=== PATIENT | female | born 1935 | race Caucasian/White ===

== ENCOUNTER → 2017-02-18 | Outpatient (CLI) | payer MEDICARE, OTHER ==
[~2017-02-18] MED LIST: ALBU8.5H3 INH; ASCO500C7 PO; ASPI-664 PO; ATEN50TA PO; ATOR40TA68 PO; BACI1CAP4 PO; CELE200C PO; HYD25 PO; LEVO5TAB10 PO; LOSA50TA6 PO; MONT10TA24 PO; NASONEX; OXYB5SYR2 PO; PANT40TA4 PO; SUCR1TAB56 PO; SYN1 PO
--- NOTE | 2017-02-18 15:20 | RADRPT ---
PROCEDURE: XR Right hip and pelvis. CLINICAL INDICATION: Right hip pain. Pelvic pain. Postop. TECHNIQUE: Two views. Frontal pelvis and lateral right hip. COMPARISON: 06/11/2016. FINDINGS: There is no fracture or dislocation. The soft tissues are normal. There is a right hip total arthroplasty which appears satisfactory. There are severe degenerative changes of the left hip with joint space narrowing, osteophytes, subar ticular sclerosis, subchondral cyst formation, and deformity. The appearance is worse than seen on 06/11/2016. Multiple surgical clips are present in the pelvis. The upper pelvis is not completely included on the image. IMPRESSION: 1. Satisfactory postoperative appearance of the right hip. 2. Severe degenerative changes of the left hip, worse than seen previously. RPTAT: QQ .John Conner MD, MD Date Time Electronically viewed and signed by .John Conner MD, on 02/18/2017 15:20 .R/
--- NOTE | 2017-02-18 15:33 | PN ---
Date/Time of Note Date/Time of Note DATE: 02/18/17 TIME: 15:27 Outpatient Progress Note Chief Complaint Status post right total hip replacement on 04/26/2016. HPI 81-year-old female presents today for postop right total hip replacement appointment for surgery performed on 04/26/2016 via anterior route. Patient has no complaints in regards to the right hip. Patient feels that she is back to her normal activity without any hesitation to the right hip. She presents today to discuss her left hip. Left hip also suffers from chronic osteoarthritis with [id number] deformity. Has limited activity to the left hip. He is a single-point cane for assisted ambulation due to instability of the left hip. No falls. Review of Systems Const: No Fever, no chills, no Fatigue, normal appetite, no diaphoresis. Resp: No SOB, no wheezing, no chest pain. CV: No chest pain, no palpitaions, no DILLON. Physical Exam Blood pressure 164/68, temperature is 98.1, pulse is 80, respiratory rate is 16 , height is 5 feet, weight is 160 pounds. General Appearance: well-developed, well-nourished, in no acute distress. Right hip: Patient seated comfortably in regards to the right hip at 90. Gait is normal and nonantalgic to the right hip. Left hip: Patient expresses discomfort with sitting to the left hip. About 80 with extra weight being applied to the right hip. He is a single-point cane for assisted ambulation. Imaging: X-ray of the right hip performed on 02/18/2017 showing all components appearing well aligned, attached and integrated to the bone. No signs of any lucency between metal and bone. On pelvic view, there continues to be bone on bone deformity to the left hip joint. Severe osteoarthritis of the left hip/ degenerative joint disease. Allergies Coded Allergies: Penicillins (Verified Allergy, Mild, 04/26/16) Assessment/Plan * Patient cleared in regards to the right hip status post surgery. Patient is in no need for ongoing follow-ups in regards to the right hip, unless she should experience any complication, and which we will be glad to see her. * Contact information for Rich provided today and when patient is ready to undergo left total hip arthroplasty, she will call in to schedule preoperative exam. * X-rays to the bilateral knee will be performed on preoperative exam as well. -Follow-up as needed. -Patient continues to be in possession of antibiotic card. -Patient made aware that dental prophylaxis will be necessary prior to any dental procedure for the remainder of their lifetime. Patient is aware that they must contact their dentist prior to any procedure to inform them of previous joint replacement with prosthesis implant so appropriate antibiotic may be prescribed to lower risk of joint infection status post surgery. Card will also serve as confirmation should patient be traveling and have to go through security such as at an airport. Follow-up as needed Dr. Bull present for exam and agrees with plan. Medications Home Meds Reported Medications [Nasonex] No Conflict Check 04/26/16 Montelukast Sodium* (Montelukast Sodium*) 10 Mg Tablet, 10 MG PO BID, #30 TAB 04/26/16 Oxybutynin Chloride* (Oxybutynin Chloride*) 5 Mg/5 Ml Syrup, 5 MG PO TID, ML 04/26/16 Pantoprazole* (Pantoprazole*) 40 Mg Tablet.dr, 40 MG PO DAILY, TAB 04/26/16 Albuterol Sulfate* (Proair HFA*) 8.5 Gm Hfa.aer.ad, 2 PUFF INH Q4, #1 INHALER 04/26/16 Bacillus Coagulans/Inulin (Probiotic Formula Capsule) 1 Each Capsule, 1 EACH PO DAILY, CAP 04/26/16 Sucralfate* (Carafate*) 1 Gm Tab, 1 GM PO BID, TAB 04/26/16 Ascorbic Acid* (Vitamin C*) 500 Mg Capsule.sa, 1000 MG PO DAILY, CAP 04/26/16 Levothyroxine Sodium* (Synthroid*) 100 Mcg Tablet, 100 MCG PO BEFORE BREAKFAST, #30 TAB 04/26/16 Aspirin* (Aspirin* EC) 81 Mg Tablet.dr, 81 MG PO DAILY, TAB 04/26/16 Atenolol* (Atenolol*) 50 Mg Tablet, 50 MG PO BID, #60 TAB 04/26/16 Atorvastatin* (Atorvastatin*) 40 Mg Tablet, 20 MG PO QHS, #30 TAB 04/26/16 Celecoxib* (Celebrex*) 200 Mg Capsule, 200 MG PO DAILY, CAP 04/26/16 Hydrochlorothiazide* (Hydrochlorothiazide*) 25 Mg Tab, 25 MG PO DAILY, #30 TAB 04/26/16 Levocetirizine Dihydrochloride (Xyzal) 5 Mg Tablet, 5 MG PO QPM, TAB 04/26/16 Losartan Potassium* (Losartan Potassium*) 50 Mg Tablet, 50 MG PO DAILY, TAB 04/26/16 ANITRA ORTIZ PA-C Feb 18, 2017 15:33
== END | disposition home or self-care (01) ==
LOC: HKI 14:16
DX: M25.552 Pain in left hip (principal); M16.12 Unilateral primary osteoarthritis, left hip; Z96.641 Presence of right artificial hip joint
CPT/HCPCS: 73502; G0463

== ENCOUNTER 2017-08-01 08:00 | Inpatient (IN) | payer MEDICARE, OTHER ==
[~2017-08-01] VITALS: Ht 152.4 cm; Wt 70.0 kg
[~2017-08-01 08:00] MED LIST changes: -HYD25 PO; +HYDR25TA6 PO; -LEVO5TAB10 PO; +LEVO5TAB28 PO
--- NOTE | 2017-10-13 12:09 | PREOPHP ---
DATE OF ADMISSION: 10/15/2017 CHIEF COMPLAINT: The patient preop for left total hip replacement. HISTORY OF PRESENT ILLNESS: The patient is an 82-year-old female with a history of longst anding arthritis of the left hip. Symptoms have gotten much worse over the last year. The patient has pain with ambulation and going up stairs. The patient currently under the care of ortho nish mosquera scheduled for left total hip replacement in July, but postponed. The patient had had ur inary tract infections. She has seen in infectious disease and has been treated. The patient's uri nary symptoms are improved. No recent illnesses. No chest pain, shortness of breath, fever, chills , or night sweats. The patient is scheduled for left total hip replacement with Dr. Thompson on 10/15. PAST MEDICAL HISTORY: Hypertension, hyperlipidemia, osteoarthritis, GERD, hypothyroid, osteoporosis , prediabetes, ovarian cancer, spinal stenosis, allergic rhinitis, diverticular disease. OPERATIONS: Cholecystectomy, hysterectomy, cataract extraction, tonsillectomy and right hip surgery . MEDICATIONS: 1. Losartan 50 mg daily. 2. Hydrochlorothiazide 25 mg daily. 3. Mometasone nasal spray. 4. ProAir HFA p.r.n. 5. Pantoprazole 40 mg daily. 6. Lipitor 20 mg daily. 7. Oxybutynin 5 mg b.i.d. 8. Aspirin 81 mg daily. 9. Carafate 1 gram b.i.d. 10. Synthroid 100 mcg daily. 11. Singulair 10 mg daily. 12. Celebrex 200 mg daily. 13. Atenolol 50 mg b.i.d. 14. Levocetirizine 5 mg daily. ALLERGIES: PENICILLIN. SOCIAL HISTORY: The patient never smoked, occasional alcohol. The patient is , a retired ba nker. FAMILY HISTORY: The patient's father at 60 from kidney cancer. Mother at 70 from a CVA. Brother at 60 from an VT. Sister with dementia. Daughter is alive and well. REVIEW OF SYSTEMS: GENERAL: The patient denies any fever, chills, night sweats, or other general complaints. HEENT: The patient denies any headaches, congestion, rhinorrhea, sore throat, or other HEENT compla ints. RESPIRATORY: The patient denies any cough, wheeze, shortness of breath, or other respiratory sympto ms. CARDIOVASCULAR: The patient denies any chest pains, palpitations, dizziness, or other cardiovascula r symptoms. GASTROINTESTINAL: The patient denies any abdominal pain, nausea, vomiting, bright red blood per rec charisma, melena, or other GI symptoms. GENITOURINARY: The patient denies any dysuria, frequency, or other symptoms. NEUROLOGIC: The patient denies any numbness, tingling, weakness, or other neurologic symptoms. PHYSICAL EXAMINATION: VITAL SIGNS: Temperature 97, pulse 68, blood pressure 146/64. GENERAL APPEARANCE: This is an overweight female in no acute distress. She appears nonto xic. HEENT: Normocephalic, atraumatic. Sclerae anicteric. Pupils equal, round, reactive to light. Ext raocular movements intact. Oropharynx is clear. NECK: Supple, no adenopathy, no thyromegaly, no bruits. LUNGS: Clear to auscultation. CARDIAC: Regular rate and rhythm. ABDOMEN: Bowel sounds are present. Abdomen is soft, nontender, nondistended. EXTREMITIES: Without cyanosis or clubbing. There is trace edema. NEUROLOGIC: The patient is awake and alert. Exam is grossly nonfocal. IMPRESSION: Osteoarthritis left hip, spinal stenosis, hypertension, hyperlipidemia, hyperglycemia. PLAN: Preop labs, EKG, chest x-ray recently done. The patient already is seeing cardiology for car diology clearance. If above are okay, the patient is okay for surgery. The patient to avoid aspiri n, NSAIDs or blood thinners for 1 week prior to surgery. Followup to be arranged. ADDENDUM: Data reviewed. The results will be faxed separately. The patient is medically stable to proceed with her proposed procedure. Dictated By: DAVID MCCRARY MD [place]/CIRILO Conf#: [id number] DID#: [id number] CC: HEYDI RAZO MD;*EndCC*
[2017-10-14] MEDS ORDERED: ROPIVACAINE 0.2% 60 ML, CLONIDINE 100 MCG, EPINEPHrine 0.3 MG, KETOROLAC 30 MG, SOD CHL... INJ SCH ×5 (15:30)
[2017-10-15] VITALS (27 sets, daily range): BP systolic 77–171; BP diastolic 43–76; PULSE 66–84; RESP 13–23; Ht 152.4 cm; Wt 70.0 kg
[2017-10-15] MEDS ORDERED: ACETAMINOPHEN 1000MG/100ML IV 100 ML IVPB ONE (06:00)
[2017-10-15] MEDS ORDERED: DEXAMETHASONE 4 MG/ML 1 ML INJ IV ONE (06:00)
[2017-10-15] MEDS ORDERED: ONDANSETRON 4 MG INJ IV ONE (06:00)
[2017-10-15] MEDS ORDERED: LACTATED RINGER'S 1,000 ML IV* SCH (06:00)
[2017-10-15] MEDS ORDERED: CELECOXIB 200 MG CAP PO ONE (06:00)
[2017-10-15] MEDS ORDERED: LANSOPRAZOLE 30 MG CAP PO ONE (06:00)
[2017-10-15] MEDS ORDERED: CLINDAMYCIN 600 MG/50 ML D5W IVPB IVPB ONE (07:00)
--- NOTE | 2017-10-15 07:17 | HPN ---
Date/Time of Note Date/Time of Note DATE: 10/15/17 TIME: 07:17 Interval H&P Admission Note Pt. seen H&P reviewed: No system changes ANITRA ORTIZ PA-C Oct 15, 2017 07:17
[2017-10-15] MEDS ORDERED: OXYB5TAB7 PO (07:38)
[2017-10-15] MEDS ORDERED: ATOR20TA38 PO (07:39)
[2017-10-15] MEDS ORDERED: ALBU8.5H3 INH (07:39)
[2017-10-15] MEDS ORDERED: VIT1CAPS10 PO (07:40)
[2017-10-15] MEDS ORDERED: CALC1TAB79 PO (07:41)
[2017-10-15] MEDS ORDERED: B&C/1TAB2 PO (07:41)
[2017-10-15] MEDS ORDERED: POLYMYXIN/BACITRACIN 1L IRRIG ONE (07:57)
[2017-10-15] MEDS ORDERED: BACITRACIN 50000 UNITS INJ ONE (07:57)
[2017-10-15] MEDS ORDERED: TRANEXAMIC ACID 1,000 MG in SOD CHLORIDE 0.9% 100 ML IVPB ONE (08:00)
[2017-10-15] MEDS ORDERED: TRANEXAMIC ACID 1,000 MG in SOD CHLORIDE 0.9% 90 ML IV ONE (08:00)
[2017-10-15] MEDS ORDERED: morphine SULFATE/PF (10 MG/10 ML) INJ ONE (08:48)
[2017-10-15] MEDS ORDERED: POLYMYXIN B 500000 UNIT INJ ONE (08:48)
[2017-10-15] MEDS ORDERED: BUPIVACAINE 0.5%/EPI (SDV) 30 ML INJ ONE (08:48)
[2017-10-15] MEDS ORDERED: KETOROLAC 30 MG INJ ONE (08:49)
[2017-10-15] MEDS ORDERED: ROPIVACAINE 0.2% 60 ML, CLONIDINE 100 MCG, EPINEPHrine 0.3 MG, KETOROLAC 30 MG, SOD CHL... INJ SCH ×5 (09:00)
[2017-10-15] MEDS ORDERED: PROPOFOL 20 ML ONE (09:08)
[2017-10-15] MEDS ORDERED: LIDOCAINE 2% (SDV) 5 ML INJ ONE (09:09)
[2017-10-15] MEDS ORDERED: SUCCINYLCHOLINE CHLORIDE 100 MG/5 ML SYG IV ONE (09:27)
[2017-10-15] MEDS ORDERED: ROCURONIUM 50 MG INJ ONE (09:27)
[2017-10-15] MEDS ORDERED: EPHEDrine SULFATE 50 MG/5 ML SYG IV PRN (10:30)
[2017-10-15] MEDS ORDERED: HYDROmorphONE (0.2 MG/ML) 10ML SYG IV PRN ×3 (10:30)
[2017-10-15] MEDS ORDERED: METOCLOPRAMIDE 10 MG INJ IV PRN (10:30)
[2017-10-15] MEDS ORDERED: OXYCODONE/ACETAMINOPHEN (5/325) TAB PO PRN ×2 (10:30)
[2017-10-15] MEDS ORDERED: MIDAZOLAM 1 MG/ML 2 ML INJ IV PRN (10:30)
[2017-10-15] MEDS ORDERED: FENTAnyl 50 MCG/ML VIAL IV PRN ×3 (10:30)
[2017-10-15] MEDS ORDERED: DIPHENHYDRAMINE 50 MG INJ IV PRN (10:30)
[2017-10-15] MEDS ORDERED: hydrALAzine 20 MG INJ IV PRN (10:30)
[2017-10-15] MEDS ORDERED: LABETALOL HCL 20MG INJ IV PRN (10:30)
[2017-10-15] MEDS ORDERED: ONDANSETRON 4 MG INJ IV PRN (10:30)
[2017-10-15] MEDS ORDERED: MEPERIDINE 25 MG INJ IV PRN (10:30)
[2017-10-15] MEDS ORDERED: METOCLOPRAMIDE 10 MG INJ ONE (10:31)
[2017-10-15] MEDS ORDERED: EPHEDrine SULFATE 50 MG/5 ML SYG ONE (10:31)
[2017-10-15] MEDS ORDERED: ONDANSETRON 4 MG INJ ONE (10:31)
[2017-10-15] MEDS ORDERED: NEOSTIGMINE 3 MG/3 ML SYRINGE ONE (10:56)
[2017-10-15] MEDS ORDERED: GLYCOPYRROLATE 0.4 MG INJ ONE (10:56)
--- NOTE | 2017-10-15 11:09 | SIPON ---
Date/Time of Note Date/Time of Note DATE: 10/15/17 TIME: 11:07 Operative Report Preoperative Diagnosis left hip DJD Postoperative Diagnosis same Operation/Procedure Performed left MAGGIE Surgeon see signature line audiology assistant esther Second assist: ESTHER ORTIZ PA-C Anesthesia: spinal Estimated blood loss: 150 - 200 ml's Transfusion Required none Specimen bone Grafts/Implants DePuy 12 stem, 48 head, 32 head Complications none RAJEEV BENITEZ Oct 15, 2017 11:09
--- NOTE | 2017-10-15 11:35 | PDOCDIS ---
Discharge Instructions DIAGNOSIS Discharge Diagnosis Status post left total hip arthroplasty via anterior route CONDITION Patient Condition: Good HOME CARE INSTRUCTIONS: Diet Instructions: Regular ACTIVITY: Activity Restrictions: Slowly Increase Activity Rest between Activity Avoid heavy lifting No Sexual Activity Do not Drive Do not operate Machinery Do not operate Power Tool Avoid Heavy Housework Keep Limb Elevated (May apply cold therapy over surgical region while resting.) Weight Bearing (Weight-bear as tolerated using front wheeled walker.) Bathing Restrictions: Shower (Mepilex surgical dressing to remain on until postoperative appointment. Keep this area clean and dry.) FOLLOW UP/APPOINTMENTS Follow-up Plan Follow-up at postoperative appointment given to you at your preoperative visit. ANITRA ORTIZ PA-C Oct 15, 2017 11:35
[2017-10-15] MEDS ORDERED: NA PHOSPHATE/BIPHOS 133 ML ENEMA PR PRN (12:00)
[2017-10-15] MEDS ORDERED: NACL 0.9% 3 ML SYG IV SCH (12:00)
[2017-10-15] MEDS ORDERED: KETOROLAC 15 MG INJ IV PRN (12:00)
[2017-10-15] MEDS ORDERED: NALOXONE (0.4 MG/ML) INJ IV PRN (12:00)
[2017-10-15] MEDS ORDERED: SENNA/DOCUSATE NA (8.6MG/50MG) TAB PO PRN (12:00)
[2017-10-15] MEDS ORDERED: BETHANECHOL 25 MG TAB PO PRN (12:00)
[2017-10-15] MEDS ORDERED: ASPIRIN (EC) 325 MG TAB PO ONE (12:00)
[2017-10-15] MEDS ORDERED: ZOLPIDEM 5 MG TAB PO PRN (12:00)
[2017-10-15] MEDS ORDERED: DIPHENHYDRAMINE 50 MG INJ IM PRN (12:00)
[2017-10-15] MEDS ORDERED: oxyCODONE 5 MG TAB PO PRN ×2 (12:00)
[2017-10-15] MEDS ORDERED: DOCUSATE SODIUM 100 MG CAP PO ONE (12:00)
[2017-10-15] MEDS ORDERED: BISACODYL 10 MG SUPP PR PRN (12:00)
[2017-10-15] MEDS ORDERED: MAGNESIUM HYDROXIDE 30ML CUP PO PRN (12:00)
[2017-10-15] MEDS: ONDANSETRON 4 MG INJ IV SCH ×2 (12:01→18:03)
[2017-10-15] MEDS: SOD CHLORIDE 0.9% 1,000 ML IV SCH (12:16)
--- NOTE | 2017-10-15 12:57 | RADRPT ---
PROCEDURE: Intraoperative imaging of the left hip with radiography. CLINICAL INDICATION: Left hip pain. Intraoperative. TECHNIQUE: 3 images of the left hip were obtained in the operating room with portable equipment. No radiologist was in attendance. COMPARISON: No prior study is available for comparison. FINDINGS: Images demonstrate bilateral total hip arthroplasties. IMPRESSION: 1. Satisfactory intraoperative imaging of the left hip. RPTAT: QQ .John Conner MD, MD Date Time Electronically viewed and signed by .John Conner MD, on 10/15/2017 12:57 .R/
--- NOTE | 2017-10-15 16:54 | OPR ---
Date/Time of Note Date/Time of Note DATE: 10/15/17 TIME: 16:49 Operative Report Procedure Date: Oct 15, 2017 Preoperative Diagnosis Left hip osteoarthritis Postoperative Diagnosis Same Operation/Procedure Performed Left total hip replacement Surgeon see signature line Plasma Specialist De Second Plasma Specialist: ANITRA ORTIZ PA-C Anesthesia Type: spinal Estimated Blood Loss: 200 - 250 ml's Transfusion none Specimen Bone Grafts/Implants depuy size 12 stem, 48 mm acetabulum , 32 mm head Tubes/Drains None Complications none Pt Condition Post Procedure: stable Disposition: PACU Indications Patient is an 82-year-old female with advanced osteoarthritis of her left hip Procedure Description Patient was placed supine on the operating room table. The left hip was prepped and draped in the usual manner. Left hip was approached anteriorly. The plane between the sartorius and tensor fascia kaylee was developed in a blunt fashion. Branches of the circumflex vessels were identified and cauterized with aqua Mantis. The femoral neck cut was made 1 cm proximal to the lesser trochanter. The head was removed. There was advanced osteoarthritis. There was evidence of adhesion of the synovium and capsule suggestive of inflammatory arthritis. The acetabular preparation was done with the Yung reamers. A 48 mm cup was well fitting. The final cup was placed in 40-45 of abduction and 20-25 of anteversion. One screw was used to enhance fixation. The IM canal of the femur was prepared for a size 12 stem. Trial stem and insert resulted in a stable hip with good range of motion and equal leg length. X-rays were obtained to confirm alignment. Once satisfactory alignment was confirmed, the trials were removed. Final implants were placed including a size 12 stem and 32 mm femoral head. The wound was then thoroughly irrigated. Final x-rays were satisfactory. The wound was injected with Marcaine and Toradol. Hemostasis was confirmed. Wound was closed in layers using #1 Vicryl for arthrotomy and fascia, 2-0 Vicryl for subcutaneous tissue, 3-0 Monocryl for the skin. Patient was transferred to the recovery room in stable condition RAJEEV BENITEZ Oct 15, 2017 16:54
[2017-10-15] MEDS: VANCOMYCIN 1 GM (PMX) 250 ML IVPB SCH (18:03)
--- NOTE | 2017-10-15 20:38 | PN ---
Date/Time of Note Date/Time of Note DATE: 10/15/17 TIME: 20:33 Assessment/Plan VTE Prophylaxis VTE Prophylaxis Intervention: ambulation, SCD's, other Lines/Catheters IV Catheter Type (from Nrsg): Peripheral IV Urinary Cath still in place: No Assessment/Plan Assessment/Plan A: severe OA-s/p lt THR HTN hyperlipidemia hypothyroid preDM P: hold antihypertensives tonight due to bp on low side DVT prophylaxis as per ortho - scds and asa cont current rx monitor labs Subjective 24 Hr Interval Summary Free Text/Dictation See dictated h&p for details. Pt with severe OA, s/p lt THR this am. Ambulated some without probs, pain well controlled. No cp, sob, dizziness. Tolerating clear liquid diet. Exam/Review of Systems Vital Signs Vitals Vital Signs Date Time Temp Pulse Resp B/P Pulse Ox O2 Delivery O2 Flow Rate FiO2 10/15/17 19:18 98.2 77 16 106/52 97 10/15/17 16:10 Room Air 10/15/17 16:07 2.0 Exam gen- nad, nontoxic lungs- CTA heart- RRR abd- +BS, soft, nontender ext- trace edema, distal neurovascular intact. Medications Medications Current Medications Sodium Chloride (NS) 1,000 ml @ 80 mls/hr [id number] IV Last administered on t 12:16; Admin Dose 80 MLS/HR; Start 10/15/17 at 11:35 Oxycodone HCl (Roxicodone) 20 mg Q3H PRN PO PAIN LEVEL 8-10; Start 10/15/17 at 12:00 Oxycodone HCl (Roxicodone) 10 mg Q3H PRN PO PAIN LEVEL 4-7; Start 10/15/17 at 12:00 Oxycodone HCl (Roxicodone) 5 mg Q3H PRN PO PAIN LEVEL 1-3; Start 10/15/17 at 12:00 Zolpidem Tartrate (Ambien) 5 mg HS PRN PO INSOMNIA; Start 10/15/17 at 12:00 Ondansetron HCl 4 mg 4 mg Q6H IV Last administered on 10/15/17 18:03; Admin Dose 4 MG; Start 10/15/17 at 12:00; Stop 10/16/17 at 06:01 Vancomycin HCl (Vancocin) 250 ml @ 125 mls/hr Q12H IVPB Last administered on 10/15/17t 18:03; Admin Dose 125 MLS/HR; Start 10/15/17 at 18:00; Stop at 07:59 Aspirin (Ecotrin) 325 mg DAILY PO ; Start 10/16/17 at 09:00 Celecoxib (Celebrex) 200 mg BID PO ; Start 10/16/17 at 09:00 Pantoprazole (Protonix Tab) 40 mg DAILY@06 PO ; Start 10/16/17 at 06:00 Docusate Sodium/ Ferrous Fumarate (Jassi-Sequels) 1 tab BID PO ; Start at 09:00 Docusate Sodium (Colace) 200 mg BID PO ; Start 10/16/17 at 09:00; Stop at 21:01 Simethicone (Mylicon) 80 mg TID PRN PO DISTENSION/GAS/BLOATING; Start at 12:00 Senna/Docusate Sodium (Senokot-S) 2 tab BID PRN PO CONSTIPATION; Start at 12:00 Magnesium Hydroxide (Milk Of Mag) 30 ml HS PRN PO CONSTIPATION; Start at 12:00 Bisacodyl (Dulcolax Supp) 10 mg DAILY PRN [place] CONSTIPATION; Start 10/15/17 at 12:00 Sodium Biphosphate/ Sodium Phosphate (Fleet Enema) 133 ml DAILY PRN [place] CONSTIPATION; Start 10/15/17 at 12:00 Diphenhydramine HCl (Benadryl) 25 mg Q4H PRN IM ITCHING OR RASH; Start at 12:00 Ketorolac Tromethamine (Toradol) 15 mg Q6 PRN IV PAIN; Start 10/15/17 at 12:00 ; Stop 10/19/17 at 11:59 Naloxone HCl (Narcan) 0.2 mg Q2M PRN IV DECREASED REPIRATORY RATE; Start at 12:00 DAVID MCCRARY MD Oct 15, 2017 20:38
[2017-10-16] MEDS: SOD CHLORIDE 0.9% 1,000 ML IV SCH ×2 (00:05→12:35)
[2017-10-16] MEDS: ONDANSETRON 4 MG INJ IV SCH ×2 (00:21→05:47)
[2017-10-16 01:50] VITALS: BP 94/51; RESP 16
[2017-10-16 05:00] VITALS: BP 107/51; PULSE 78; RESP 18
[2017-10-16] MEDS: VANCOMYCIN 1 GM (PMX) 250 ML IVPB SCH (05:47)
[2017-10-16] MEDS: PANTOPRAZOLE (EC) 40 MG TAB PO SCH (05:47)
[2017-10-16 06:15] LABS: BASOPHILS % 0.5 % (0.0-2.0); EOSINOPHILS # 0.1 10^3/ul (0.0-0.5); EOSINOPHILS % 1.3 % (0.0-7.0); HEMATOCRIT 26.8 % (37.0-47.0); HEMOGLOBIN 8.9 g/dl (12.0-16.0); LYMPHOCYTES # 1.9 10^3/ul (0.8-2.9); MEAN CORPUSCULAR HEMOGLOBIN 29.4 pg (29.0-33.0); MEAN CORPUSCULAR HGB CONC 33.2 g/dl (32.0-37.0); MEAN CORPUSCULAR VOLUME 88.4 fl (82.0-101.0); MONOCYTE # 1.2 10^3/ul (0.3-0.9); MONOCYTES % 14.1 % (0.0-11.0); NEUTROPHIL # 5.2 10^3/ul (1.6-7.5); NEUTROPHILS % 61.7 % (39.0-77.0); PLATELET COUNT 287 10^3/UL (140-415); RED BLOOD COUNT 3.03 10^6/ul (4.20-5.40); RED CELL DISTRIBUTION WIDTH 13.9 % (11.5-14.5); WHITE BLOOD COUNT 8.5 10^3/ul (4.8-10.8)
[2017-10-16 06:37] LABS: CALCIUM 8.2 mg/dl (8.4-10.2); CREATININE 0.79 mg/dl (0.44-1.00); POTASSIUM 3.1 mmol/L (3.5-5.1)
[2017-10-16 07:54] VITALS: BP 110/53; RESP 15
[2017-10-16] MEDS: CELECOXIB 200 MG CAP PO SCH ×2 (08:23→20:41)
[2017-10-16] MEDS: FERROUS FUMARATE (SR) TAB PO SCH ×2 (08:23→20:40)
[2017-10-16] MEDS: DOCUSATE SODIUM 100 MG CAP PO SCH ×2 (08:24→20:40)
[2017-10-16] MEDS: ASPIRIN (EC) 325 MG TAB PO SCH (08:24)
[2017-10-16] MEDS: oxyCODONE 5 MG TAB PO PRN ×2 (09:04→18:58)
--- NOTE | 2017-10-16 11:33 | PN ---
Date/Time of Note Date/Time of Note DATE: 10/16/17 TIME: 11:32 Assessment/Plan VTE Prophylaxis VTE Prophylaxis Intervention: ambulation, anti-embolic stocking, SCD's, other Lines/Catheters IV Catheter Type (from Nrsg): Saline Lock Urinary Cath still in place: No Subjective 24 Hr Interval Summary Free Text/Dictation Luz is doing very well after hip replacement. She is ambulatory with physical therapy. Pain is controlled with oral pain medication. There is no neurovascular deficit. Dressing is clean and dry. The patient wants to go to a snf facility in the next 1-2 days Exam/Review of Systems Vital Signs Vitals Vital Signs Date Time Temp Pulse Resp B/P Pulse Ox O2 Delivery O2 Flow Rate FiO2 10/16/17 09:28 Nasal Cannula 2.0 10/16/17 07:54 98.4 80 15 110/53 98 Intake and Output 10/15/17 10/15/17 10/16/17 15:00 23:00 07:00 Intake Total 750 ml 900 ml 880 ml Output Total 300 ml Balance 450 ml 900 ml 880 ml Results Result Diagram: 10/16/17 0511 10/16/17 0511 Results 24 hrs Laboratory Tests Test 10/16/17 05:11 White Blood Count 8.5 # Red Blood Count 3.03 L Hemoglobin 8.9 L Hematocrit 26.8 L Mean Corpuscular Volume 88.4 Mean Corpuscular Hemoglobin 29.4 Mean Corpuscular Hemoglobin Concent 33.2 Red Cell Distribution Width 13.9 Platelet Count 287 Mean Platelet Volume 10.0 Neutrophils % 61.7 Lymphocytes % 22.0 Monocytes % 14.1 H Eosinophils % 1.3 Basophils % 0.5 Nucleated Red Blood Cells % 0.0 Neutrophils # 5.2 Lymphocytes # 1.9 Monocytes # 1.2 H Eosinophils # 0.1 Basophils # 0.0 Nucleated Red Blood Cells # 0.0 Sodium Level 136 Potassium Level 3.1 L Chloride Level 100 Carbon Dioxide Level 27 Anion Gap 12 Blood Urea Nitrogen 21 H Creatinine 0.79 Glucose Level 102 Calcium Level 8.2 L Medications Medications Current Medications Sodium Chloride (NS) 1,000 ml @ 80 mls/hr [id number] IV Last administered on t 12:16; Admin Dose 80 MLS/HR; Start 10/15/17 at 11:35 Oxycodone HCl (Roxicodone) 20 mg Q3H PRN PO PAIN LEVEL 8-10; Start 10/15/17 at 12:00 Oxycodone HCl (Roxicodone) 10 mg Q3H PRN PO PAIN LEVEL 4-7 Last administered on 10/16/17 09:04; Admin Dose 10 MG; Start 10/15/17 at 12:00 Oxycodone HCl (Roxicodone) 5 mg Q3H PRN PO PAIN LEVEL 1-3; Start 10/15/17 at 12:00 Zolpidem Tartrate (Ambien) 5 mg HS PRN PO INSOMNIA; Start 10/15/17 at 12:00 Aspirin (Ecotrin) 325 mg DAILY PO Last administered on 10/16/17 08:24; Admin Dose 325 MG; Start 10/16/17 at 09:00 Celecoxib (Celebrex) 200 mg BID PO Last administered on 10/16/17 08:23; Admin Dose 200 MG; Start 10/16/17 at 09:00 Pantoprazole (Protonix Tab) 40 mg DAILY@06 PO Last administered on 10/16/17 05:47; Admin Dose 40 MG; Start 10/16/17 at 06:00 Docusate Sodium/ Ferrous Fumarate (Jassi-Sequels) 1 tab BID PO Last administered on 10/16/17 08:23; Admin Dose 1 TAB; Start 10/16/17 at 09:00 Docusate Sodium (Colace) 200 mg BID PO Last administered on 10/16/17 08:24; Admin Dose 200 MG; Start 10/16/17 at 09:00; Stop 10/18/17 at 21:01 Simethicone (Mylicon) 80 mg TID PRN PO DISTENSION/GAS/BLOATING; Start at 12:00 Senna/Docusate Sodium (Senokot-S) 2 tab BID PRN PO CONSTIPATION; Start at 12:00 Magnesium Hydroxide (Milk Of Mag) 30 ml HS PRN PO CONSTIPATION; Start at 12:00 Bisacodyl (Dulcolax Supp) 10 mg DAILY PRN [place] CONSTIPATION; Start 10/15/17 at 12:00 Sodium Biphosphate/ Sodium Phosphate (Fleet Enema) 133 ml DAILY PRN [place] CONSTIPATION; Start 10/15/17 at 12:00 Diphenhydramine HCl (Benadryl) 25 mg Q4H PRN IM ITCHING OR RASH; Start at 12:00 Ketorolac Tromethamine (Toradol) 15 mg Q6 PRN IV PAIN; Start 10/15/17 at 12:00 ; Stop 10/19/17 at 11:59 Naloxone HCl (Narcan) 0.2 mg Q2M PRN IV DECREASED REPIRATORY RATE; Start at 12:00 RAJEEV BENITEZ Oct 16, 2017 11:33
--- NOTE | 2017-10-16 14:52 | PN ---
Date/Time of Note Date/Time of Note DATE: 10/16/17 TIME: 14:48 Assessment/Plan VTE Prophylaxis VTE Prophylaxis Intervention: ambulation, SCD's, other Lines/Catheters IV Catheter Type (from Nrsg): Saline Lock Urinary Cath still in place: No Assessment/Plan Assessment/Plan A: severe OA-s/p lt THR hypokalemia HTN hypothyroid hyperlipidemia P: k replacement monitor labs, ck mg resume synthroid and reduced dose atenolol cont PT cont other rx Subjective 24 Hr Interval Summary Free Text/Dictation Pt s/p lt THR tolerating PT, pain reasonably controlled. No cp, sob, dizziness. Passing flatus no bm yet. Exam/Review of Systems Vital Signs Vitals Vital Signs Date Time Temp Pulse Resp B/P Pulse Ox O2 Delivery O2 Flow Rate FiO2 10/16/17 09:28 Nasal Cannula 2.0 10/16/17 07:54 98.4 80 15 110/53 98 Intake and Output 10/15/17 10/15/17 10/16/17 15:00 23:00 07:00 Intake Total 750 ml 900 ml 880 ml Output Total 300 ml Balance 450 ml 900 ml 880 ml Exam gen- nad, nontoxic lungs- cta heart- RRR abd- +BS, soft, nontender ext- tr edema, distal neurovascular intact Results Result Diagram: 10/16/17 0511 10/16/17 0511 Results 24 hrs Laboratory Tests Test 10/16/17 05:11 White Blood Count 8.5 # Red Blood Count 3.03 L Hemoglobin 8.9 L Hematocrit 26.8 L Mean Corpuscular Volume 88.4 Mean Corpuscular Hemoglobin 29.4 Mean Corpuscular Hemoglobin Concent 33.2 Red Cell Distribution Width 13.9 Platelet Count 287 Mean Platelet Volume 10.0 Neutrophils % 61.7 Lymphocytes % 22.0 Monocytes % 14.1 H Eosinophils % 1.3 Basophils % 0.5 Nucleated Red Blood Cells % 0.0 Neutrophils # 5.2 Lymphocytes # 1.9 Monocytes # 1.2 H Eosinophils # 0.1 Basophils # 0.0 Nucleated Red Blood Cells # 0.0 Sodium Level 136 Potassium Level 3.1 L Chloride Level 100 Carbon Dioxide Level 27 Anion Gap 12 Blood Urea Nitrogen 21 H Creatinine 0.79 Glucose Level 102 Calcium Level 8.2 L Medications Medications Current Medications Sodium Chloride (NS) 1,000 ml @ 80 mls/hr [id number] IV Last administered on 12:16; Admin Dose 80 MLS/HR; Start 10/15/17 at 11:35 Oxycodone HCl (Roxicodone) 20 mg Q3H PRN PO PAIN LEVEL 8-10; Start 10/15/17 at 12:00 Oxycodone HCl (Roxicodone) 10 mg Q3H PRN PO PAIN LEVEL 4-7 Last administered on 10/16/17 09:04; Admin Dose 10 MG; Start 10/15/17 at 12:00 Oxycodone HCl (Roxicodone) 5 mg Q3H PRN PO PAIN LEVEL 1-3; Start 10/15/17 at 12:00 Zolpidem Tartrate (Ambien) 5 mg HS PRN PO INSOMNIA; Start 10/15/17 at 12:00 Aspirin (Ecotrin) 325 mg DAILY PO Last administered on 10/16/17 08:24; Admin Dose 325 MG; Start 10/16/17 at 09:00 Celecoxib (Celebrex) 200 mg BID PO Last administered on 10/16/17 08:23; Admin Dose 200 MG; Start 10/16/17 at 09:00 Pantoprazole (Protonix Tab) 40 mg DAILY@06 PO Last administered on 10/16/17 05:47; Admin Dose 40 MG; Start 10/16/17 at 06:00 Docusate Sodium/ Ferrous Fumarate (Jassi-Sequels) 1 tab BID PO Last administered on 10/16/17 08:23; Admin Dose 1 TAB; Start 10/16/17 at 09:00 Docusate Sodium (Colace) 200 mg BID PO Last administered on 10/16/17 08:24; Admin Dose 200 MG; Start 10/16/17 at 09:00; Stop 10/18/17 at 21:01 Simethicone (Mylicon) 80 mg TID PRN PO DISTENSION/GAS/BLOATING; Start at 12:00 Senna/Docusate Sodium (Senokot-S) 2 tab BID PRN PO CONSTIPATION; Start at 12:00 Magnesium Hydroxide (Milk Of Mag) 30 ml HS PRN PO CONSTIPATION; Start at 12:00 Bisacodyl (Dulcolax Supp) 10 mg DAILY PRN [place] CONSTIPATION; Start 10/15/17 at 12:00 Sodium Biphosphate/ Sodium Phosphate (Fleet Enema) 133 ml DAILY PRN [place] CONSTIPATION; Start 10/15/17 at 12:00 Diphenhydramine HCl (Benadryl) 25 mg Q4H PRN IM ITCHING OR RASH; Start at 12:00 Ketorolac Tromethamine (Toradol) 15 mg Q6 PRN IV PAIN; Start 10/15/17 at 12:00 ; Stop 10/19/17 at 11:59 Naloxone HCl (Narcan) 0.2 mg Q2M PRN IV DECREASED REPIRATORY RATE; Start at 12:00 DAVID MCCRARY MD Oct 16, 2017 14:52
[2017-10-16 14:54] VITALS: BP 108/53; RESP 18
[2017-10-16] MEDS ORDERED: POTASSIUM CHLORIDE (SR) 20 MEQ TAB PO STA (14:59)
[2017-10-16 19:55] VITALS: BP 120/88; RESP 18
[2017-10-17] MEDS: SOD CHLORIDE 0.9% 1,000 ML IV SCH ×2 (01:05→13:35)
[2017-10-17 02:00] VITALS: BP 133/63; RESP 18
[2017-10-17] MEDS: PANTOPRAZOLE (EC) 40 MG TAB PO SCH (05:29)
[2017-10-17] MEDS: LEVOTHYROXINE 100 MCG TAB PO SCH (05:29)
[2017-10-17] MEDS: oxyCODONE 5 MG TAB PO PRN ×3 (05:40→20:24)
[2017-10-17 05:58] LABS: BASOPHIL # 0.1 10^3/ul (0.0-0.1); BASOPHILS % 0.8 % (0.0-2.0); EOSINOPHILS # 0.4 10^3/ul (0.0-0.5); EOSINOPHILS % 4.4 % (0.0-7.0); HEMATOCRIT 27.2 % (37.0-47.0); HEMOGLOBIN 8.9 g/dl (12.0-16.0); LYMPHOCYTES # 2.2 10^3/ul (0.8-2.9); LYMPHOCYTES % 27.7 % (15.0-51.0); MEAN CORPUSCULAR HEMOGLOBIN 28.9 pg (29.0-33.0); MEAN CORPUSCULAR HGB CONC 32.7 g/dl (32.0-37.0); MEAN CORPUSCULAR VOLUME 88.3 fl (82.0-101.0); MONOCYTE # 1.1 10^3/ul (0.3-0.9); MONOCYTES % 13.5 % (0.0-11.0); NEUTROPHIL # 4.2 10^3/ul (1.6-7.5); NEUTROPHILS % 53.2 % (39.0-77.0); PLATELET COUNT 284 10^3/UL (140-415); RED BLOOD COUNT 3.08 10^6/ul (4.20-5.40); RED CELL DISTRIBUTION WIDTH 14.2 % (11.5-14.5); WHITE BLOOD COUNT 7.9 10^3/ul (4.8-10.8)
[2017-10-17 06:36] LABS: CALCIUM 8.8 mg/dl (8.4-10.2); CREATININE 0.71 mg/dl (0.44-1.00); POTASSIUM 3.9 mmol/L (3.5-5.1)
[2017-10-17 08:16] VITALS: BP 132/61; RESP 18
--- NOTE | 2017-10-17 08:58 | PN ---
Date/Time of Note Date/Time of Note DATE: 10/17/17 TIME: 08:56 Assessment/Plan VTE Prophylaxis VTE Prophylaxis Intervention: ambulation, SCD's, other (Aspirin 325 mg) Lines/Catheters IV Catheter Type (from Nrsg): Saline Lock Burciaga in Place (from Nrsg): No Assessment/Plan Assessment/Plan -Pain Meds as needed -ASA for DVT Prophylaxis x 4 weeks outpatient discussed. -Continue monitoring as outpatient on discharge -Follow-up at scheduled postop outpatient appointment or sooner if there is any issue. -Hip precautions discussed -Patient Stable -Discharge to SNF Subjective 24 Hr Interval Summary 82-year-old female postop day 2 status post left total hip arthroplasty via anterior route. No acute events overnight. Patient has complaints of some aches to the left hip region. Up and walking with physical therapy. Denies any chest pain/tightness, shortness of breath or calf pain. Continues to progress. [facility] Pain Control: mild Exam/Review of Systems Vital Signs Vitals Vital Signs Date Time Temp Pulse Resp B/P Pulse Ox O2 Delivery O2 Flow Rate FiO2 10/17/17 08:16 98.3 78 18 132/61 97 10/16/17 09:28 Nasal Cannula 2.0 Intake and Output 10/16/17 10/16/17 10/17/17 15:00 23:00 07:00 Intake Total 250 ml 600 ml 600 ml Output Total 700 ml Balance 250 ml -100 ml 600 ml Exam Free Text/Dictation -Mild bleeding to the distal portion of Mepilex dressing. Dressing intact. No signs of infection. -Thigh soft -5/5 Quadriceps, Tibialis Anterior, EHL Gastrocnemius/Soleus and Peroneals -Normal Sensation -Palpable DP/PT, Capillary Refill <2 secs -No Distal Edema -Negative Negin Sign/No calf pain -Toes Freely Movable Constitutional: alert, oriented, well developed Results Result Diagram: 10/17/17 0459 10/17/17 0459 ANITRA ORTIZ PA-C Oct 17, 2017 08:58
[2017-10-17] MEDS ORDERED: ATENOLOL 25 MG TAB PO SCH (09:00)
[2017-10-17] MEDS: FERROUS FUMARATE (SR) TAB PO SCH ×2 (09:18→20:25)
[2017-10-17] MEDS: DOCUSATE SODIUM 100 MG CAP PO SCH ×2 (09:18→20:24)
[2017-10-17] MEDS: CELECOXIB 200 MG CAP PO SCH ×2 (09:18→20:25)
[2017-10-17] MEDS: ASPIRIN (EC) 325 MG TAB PO SCH (09:18)
[2017-10-17 15:07] VITALS: BP 133/63; RESP 18
--- NOTE | 2017-10-17 16:14 | PN ---
Date/Time of Note Date/Time of Note DATE: 10/17/17 TIME: 16:07 Assessment/Plan VTE Prophylaxis VTE Prophylaxis Intervention: ambulation, SCD's, other Lines/Catheters IV Catheter Type (from Nrsg): Saline Lock Urinary Cath still in place: No Assessment/Plan Assessment/Plan A: severe OA- s/p lt THR hypokalemia hypomagnesemia HTN hypothyroid hyperlipidemia P: inc atenolol to bid mag replacement resume lipitor await snf placement Subjective 24 Hr Interval Summary Free Text/Dictation Pt with severe OA s/p lt THR. Pain reasonably controlled, awaiting placement at [facility]. Hypokalemia corrected. No cp, sob, f/c, ns. Exam/Review of Systems Vital Signs Vitals Vital Signs Date Time Temp Pulse Resp B/P Pulse Ox O2 Delivery O2 Flow Rate FiO2 10/17/17 15:07 98.0 71 18 133/63 97 10/16/17 09:28 Nasal Cannula 2.0 Intake and Output 10/16/17 10/16/17 10/17/17 15:00 23:00 07:00 Intake Total 250 ml 600 ml 600 ml Output Total 700 ml Balance 250 ml -100 ml 600 ml Exam gen- NAD, nontoxic lungs- CTA heart- RRR abd- +BS, soft, nontender ext- tr edema, mild sanguinous drainage in dressing at hip Results Result Diagram: 10/17/17 0459 10/17/17 0459 Results 24 hrs Laboratory Tests Test 10/17/17 04:59 White Blood Count 7.9 Red Blood Count 3.08 L Hemoglobin 8.9 L Hematocrit 27.2 L Mean Corpuscular Volume 88.3 Mean Corpuscular Hemoglobin 28.9 L Mean Corpuscular Hemoglobin Concent 32.7 Red Cell Distribution Width 14.2 Platelet Count 284 Mean Platelet Volume 10.0 Neutrophils % 53.2 Lymphocytes % 27.7 Monocytes % 13.5 H Eosinophils % 4.4 Basophils % 0.8 Nucleated Red Blood Cells % 0.0 Neutrophils # 4.2 Lymphocytes # 2.2 Monocytes # 1.1 H Eosinophils # 0.4 Basophils # 0.1 Nucleated Red Blood Cells # 0.0 Sodium Level 138 Potassium Level 3.9 Chloride Level 104 Carbon Dioxide Level 28 Anion Gap 10 Blood Urea Nitrogen 17 Creatinine 0.71 Glucose Level 100 Calcium Level 8.8 Magnesium Level 1.6 L Medications Medications Current Medications Sodium Chloride (NS) 1,000 ml @ 80 mls/hr [id number] IV Last administered on 12:16; Admin Dose 80 MLS/HR; Start 10/15/17 at 11:35 Oxycodone HCl (Roxicodone) 20 mg Q3H PRN PO PAIN LEVEL 8-10; Start 10/15/17 at 12:00 Oxycodone HCl (Roxicodone) 10 mg Q3H PRN PO PAIN LEVEL 4-7 Last administered on 10/17/17 05:40; Admin Dose 10 MG; Start 10/15/17 at 12:00 Oxycodone HCl (Roxicodone) 5 mg Q3H PRN PO PAIN LEVEL 1-3; Start 10/15/17 at 12:00 Zolpidem Tartrate (Ambien) 5 mg HS PRN PO INSOMNIA; Start 10/15/17 at 12:00 Aspirin (Ecotrin) 325 mg DAILY PO Last administered on 10/17/17 09:18; Admin Dose 325 MG; Start 10/16/17 at 09:00 Celecoxib (Celebrex) 200 mg BID PO Last administered on 10/17/17 09:18; Admin Dose 200 MG; Start 10/16/17 at 09:00 Pantoprazole (Protonix Tab) 40 mg DAILY@06 PO Last administered on 10/17/17 05:29; Admin Dose 40 MG; Start 10/16/17 at 06:00 Docusate Sodium/ Ferrous Fumarate (Jassi-Sequels) 1 tab BID PO Last administered on 10/17/17 09:18; Admin Dose 1 TAB; Start 10/16/17 at 09:00 Docusate Sodium (Colace) 200 mg BID PO Last administered on 10/17/17 09:18; Admin Dose 200 MG; Start 10/16/17 at 09:00; Stop 10/18/17 at 21:01 Simethicone (Mylicon) 80 mg TID PRN PO DISTENSION/GAS/BLOATING; Start at 12:00 Senna/Docusate Sodium (Senokot-S) 2 tab BID PRN PO CONSTIPATION Last administered on 10/17/17 05:40; Admin Dose 2 TAB; Start 11/22/17 at 12:00 Magnesium Hydroxide (Milk Of Mag) 30 ml HS PRN PO CONSTIPATION; Start at 12:00 Bisacodyl (Dulcolax Supp) 10 mg DAILY PRN [place] CONSTIPATION; Start 10/15/17 at 12:00 Sodium Biphosphate/ Sodium Phosphate (Fleet Enema) 133 ml DAILY PRN [place] CONSTIPATION; Start 10/15/17 at 12:00 Diphenhydramine HCl (Benadryl) 25 mg Q4H PRN IM ITCHING OR RASH; Start at 12:00 Ketorolac Tromethamine (Toradol) 15 mg Q6 PRN IV PAIN; Start 10/15/17 at 12:00 ; Stop 10/19/17 at 11:59 Naloxone HCl (Narcan) 0.2 mg Q2M PRN IV DECREASED REPIRATORY RATE; Start at 12:00 Atenolol (Tenormin) 25 mg DAILY PO Last administered on 10/17/17 09:18; Admin Dose 25 MG; Start 10/17/17 at 09:00 Levothyroxine Sodium (Synthroid) 100 mcg DAILY@06 PO Last administered on 10/17 05:29; Admin Dose 100 MCG; Start 10/17/17 at 06:00 DAVID MCCRARY MD Oct 17, 2017 16:14
[2017-10-17] MEDS ORDERED: MAGNESIUM SULFATE 2 GM/50 ML 50 ML IVPB ONE (17:00)
[2017-10-17 19:53] VITALS: BP 137/65; RESP 20
[2017-10-17] MEDS: ATORVASTATIN 20 MG TAB PO SCH (20:24)
[2017-10-17] MEDS: ATENOLOL 25 MG TAB PO SCH (20:25)
[2017-10-18] MEDS: SOD CHLORIDE 0.9% 1,000 ML IV SCH ×2 (02:05→14:35)
[2017-10-18 03:05] VITALS: BP 132/67; RESP 18
[2017-10-18] MEDS: LEVOTHYROXINE 100 MCG TAB PO SCH (05:54)
[2017-10-18] MEDS: PANTOPRAZOLE (EC) 40 MG TAB PO SCH (05:54)
[2017-10-18 08:21] VITALS: BP 163/75; RESP 20
[2017-10-18] MEDS: FERROUS FUMARATE (SR) TAB PO SCH ×2 (08:33→20:41)
[2017-10-18] MEDS: ASPIRIN (EC) 325 MG TAB PO SCH (08:33)
[2017-10-18] MEDS: DOCUSATE SODIUM 100 MG CAP PO SCH ×2 (08:33→20:41)
[2017-10-18] MEDS: CELECOXIB 200 MG CAP PO SCH ×2 (08:33→20:41)
[2017-10-18] MEDS: oxyCODONE 5 MG TAB PO PRN (08:34)
[2017-10-18] MEDS: ATENOLOL 25 MG TAB PO SCH (08:34)
[2017-10-18 09:15] LABS: BASOPHIL # 0.1 10^3/ul (0.0-0.1); BASOPHILS % 0.7 % (0.0-2.0); EOSINOPHILS # 0.4 10^3/ul (0.0-0.5); HEMATOCRIT 27.5 % (37.0-47.0); HEMOGLOBIN 8.9 g/dl (12.0-16.0); LYMPHOCYTES # 1.6 10^3/ul (0.8-2.9); LYMPHOCYTES % 20.7 % (15.0-51.0); MEAN CORPUSCULAR HEMOGLOBIN 29.1 pg (29.0-33.0); MEAN CORPUSCULAR HGB CONC 32.4 g/dl (32.0-37.0); MEAN CORPUSCULAR VOLUME 89.9 fl (82.0-101.0); MEAN PLATELET VOLUME 9.9 fl (7.4-10.4); MONOCYTE # 0.8 10^3/ul (0.3-0.9); MONOCYTES % 11.1 % (0.0-11.0); NEUTROPHIL # 4.7 10^3/ul (1.6-7.5); NEUTROPHILS % 62.1 % (39.0-77.0); PLATELET COUNT 287 10^3/UL (140-415); RED BLOOD COUNT 3.06 10^6/ul (4.20-5.40); RED CELL DISTRIBUTION WIDTH 14.1 % (11.5-14.5); WHITE BLOOD COUNT 7.6 10^3/ul (4.8-10.8)
[2017-10-18 09:41] LABS: CALCIUM 8.8 mg/dl (8.4-10.2); CREATININE 0.67 mg/dl (0.44-1.00); POTASSIUM 3.6 mmol/L (3.5-5.1)
[2017-10-18 11:14] VITALS: BP 148/70; PULSE 78
--- NOTE | 2017-10-18 15:02 | PN ---
Date/Time of Note Date/Time of Note DATE: 10/18/17 TIME: 14:57 Assessment/Plan VTE Prophylaxis VTE Prophylaxis Intervention: ambulation, SCD's, other Lines/Catheters IV Catheter Type (from Nrsg): Saline Lock Urinary Cath still in place: No Assessment/Plan Assessment/Plan A: nausea dizziness HTN severe OA- s/p lt THR hypothyroid hypomagnesemia hypokalemia P: inc atenolol to 50mg bid resume losartan cont other rx check chem, amylase, lipase, mg in am carafate Subjective 24 Hr Interval Summary Free Text/Dictation Pt with some nausea and dizziness this am. Chicken a bit flushed. BP elevated. Sx lasted few minutes. No cp, sob, abd pain. Had bm this am. Pain control reasonable. Exam/Review of Systems Vital Signs Vitals Vital Signs Date Time Temp Pulse Resp B/P Pulse Ox O2 Delivery O2 Flow Rate FiO2 10/18/17 11:14 78 148/70 10/18/17 08:21 98.3 20 95 10/16/17 09:28 Nasal Cannula 2.0 Intake and Output 10/17/17 10/17/17 10/18/17 15:00 23:00 07:00 Intake Total 1050 ml 480 ml Balance 1050 ml 480 ml Exam gen- nad, nontoxic lungs- CTA heart- RRR. abd- +BS, soft, nontender ext- tr edema Results Result Diagram: 10/18/1782710/18/1728 Results 24 hrs Laboratory Tests Test 10/18/17 08:28 White Blood Count 7.6 Red Blood Count 3.06 L Hemoglobin 8.9 L Hematocrit 27.5 L Mean Corpuscular Volume 89.9 Mean Corpuscular Hemoglobin 29.1 Mean Corpuscular Hemoglobin Concent 32.4 Red Cell Distribution Width 14.1 Platelet Count 287 Mean Platelet Volume 9.9 Neutrophils % 62.1 Lymphocytes % 20.7 Monocytes % 11.1 H Eosinophils % 5.0 Basophils % 0.7 Nucleated Red Blood Cells % 0.0 Neutrophils # 4.7 Lymphocytes # 1.6 Monocytes # 0.8 Eosinophils # 0.4 Basophils # 0.1 Nucleated Red Blood Cells # 0.0 Sodium Level 137 Potassium Level 3.6 Chloride Level 101 Carbon Dioxide Level 32 H Anion Gap 8 Blood Urea Nitrogen 15 Creatinine 0.67 Glucose Level 106 Calcium Level 8.8 Medications Medications Current Medications Sodium Chloride (NS) 1,000 ml @ 80 mls/hr [id number] IV Last administered on 12:16; Admin Dose 80 MLS/HR; Start 10/15/17 at 11:35 Oxycodone HCl (Roxicodone) 20 mg Q3H PRN PO PAIN LEVEL 8-10; Start 10/15/17 at 12:00 Oxycodone HCl (Roxicodone) 10 mg Q3H PRN PO PAIN LEVEL 4-7 Last administered on 10/18/17 08:34; Admin Dose 10 MG; Start 10/15/17 at 12:00 Oxycodone HCl (Roxicodone) 5 mg Q3H PRN PO PAIN LEVEL 1-3; Start 10/15/17 at 12:00 Zolpidem Tartrate (Ambien) 5 mg HS PRN PO INSOMNIA; Start 10/15/17 at 12:00 Aspirin (Ecotrin) 325 mg DAILY PO Last administered on 10/18/17 08:33; Admin Dose 325 MG; Start 10/16/17 at 09:00 Celecoxib (Celebrex) 200 mg BID PO Last administered on 10/18/17 08:33; Admin Dose 200 MG; Start 10/16/17 at 09:00 Pantoprazole (Protonix Tab) 40 mg DAILY@06 PO Last administered on 10/18/17 05:54; Admin Dose 40 MG; Start 10/16/17 at 06:00 Docusate Sodium/ Ferrous Fumarate (Jassi-Sequels) 1 tab BID PO Last administered on 10/18/17 08:33; Admin Dose 1 TAB; Start 10/16/17 at 09:00 Docusate Sodium (Colace) 200 mg BID PO Last administered on 10/18/17 08:33; Admin Dose 200 MG; Start 10/16/17 at 09:00; Stop 10/18/17 at 21:01 Simethicone (Mylicon) 80 mg TID PRN PO DISTENSION/GAS/BLOATING; Start at 12:00 Senna/Docusate Sodium (Senokot-S) 2 tab BID PRN PO CONSTIPATION Last administered on 10/17/17 05:40; Admin Dose 2 TAB; Start 11/22/17 at 12:00 Magnesium Hydroxide (Milk Of Mag) 30 ml HS PRN PO CONSTIPATION; Start at 12:00 Bisacodyl (Dulcolax Supp) 10 mg DAILY PRN [place] CONSTIPATION; Start 10/15/17 at 12:00 Sodium Biphosphate/ Sodium Phosphate (Fleet Enema) 133 ml DAILY PRN [place] CONSTIPATION; Start 10/15/17 at 12:00 Diphenhydramine HCl (Benadryl) 25 mg Q4H PRN IM ITCHING OR RASH; Start at 12:00 Ketorolac Tromethamine (Toradol) 15 mg Q6 PRN IV PAIN; Start 10/15/17 at 12:00 ; Stop 10/19/17 at 11:59 Naloxone HCl (Narcan) 0.2 mg Q2M PRN IV DECREASED REPIRATORY RATE; Start at 12:00 Levothyroxine Sodium (Synthroid) 100 mcg DAILY@06 PO Last administered on 10/18 05:54; Admin Dose 100 MCG; Start 10/17/17 at 06:00 Atenolol (Tenormin) 25 mg BID PO Last administered on 10/18/17 08:34; Admin Dose 25 MG; Start 10/17/17 at 21:00 Atorvastatin Calcium (Lipitor) 20 mg HS PO Last administered on 10/17/17 20: 24; Admin Dose 20 MG; Start 10/17/17 at 21:00 DAVID MCCRARY MD Oct 18, 2017 15:02
[2017-10-18 15:41] VITALS: BP 157/74; RESP 20
[2017-10-18] MEDS: LOSARTAN 50 MG TAB PO SCH (15:54)
[2017-10-18] MEDS: SUCRALFATE 1 GM TAB PO SCH ×2 (16:43→20:41)
[2017-10-18 19:30] VITALS: BP 156/70; RESP 18
[2017-10-18 20:05] VITALS: BP 129/63; PULSE 74
[2017-10-18] MEDS: ATORVASTATIN 20 MG TAB PO SCH (20:42)
[2017-10-18] MEDS: ATENOLOL 50 MG TAB PO SCH (20:42)
[2017-10-19 02:00] VITALS: BP 128/60; RESP 18
[2017-10-19] MEDS: SOD CHLORIDE 0.9% 1,000 ML IV SCH ×2 (03:05→15:35)
[2017-10-19] MEDS: PANTOPRAZOLE (EC) 40 MG TAB PO SCH (07:13)
[2017-10-19] MEDS: LEVOTHYROXINE 100 MCG TAB PO SCH (07:13)
[2017-10-19 07:47] VITALS: BP 145/65; RESP 18
[2017-10-19 08:59] LABS: BASOPHIL # 0.1 10^3/ul (0.0-0.1); BASOPHILS % 0.7 % (0.0-2.0); EOSINOPHILS # 0.4 10^3/ul (0.0-0.5); EOSINOPHILS % 4.5 % (0.0-7.0); HEMATOCRIT 27.6 % (37.0-47.0); HEMOGLOBIN 9.1 g/dl (12.0-16.0); LYMPHOCYTES # 1.7 10^3/ul (0.8-2.9); LYMPHOCYTES % 21.2 % (15.0-51.0); MEAN CORPUSCULAR HEMOGLOBIN 29.4 pg (29.0-33.0); MEAN CORPUSCULAR VOLUME 89.3 fl (82.0-101.0); MEAN PLATELET VOLUME 9.5 fl (7.4-10.4); MONOCYTE # 0.9 10^3/ul (0.3-0.9); MONOCYTES % 11.2 % (0.0-11.0); NEUTROPHILS % 61.9 % (39.0-77.0); PLATELET COUNT 332 10^3/UL (140-415); RED BLOOD COUNT 3.09 10^6/ul (4.20-5.40)
[2017-10-19] MEDS: oxyCODONE 5 MG TAB PO PRN ×2 (09:12→20:57)
[2017-10-19] MEDS: LOSARTAN 50 MG TAB PO SCH (09:13)
[2017-10-19] MEDS: CELECOXIB 200 MG CAP PO SCH ×2 (09:13→20:50)
[2017-10-19] MEDS: ASPIRIN (EC) 325 MG TAB PO SCH (09:13)
[2017-10-19] MEDS: FERROUS FUMARATE (SR) TAB PO SCH ×2 (09:13→20:50)
[2017-10-19] MEDS: SUCRALFATE 1 GM TAB PO SCH ×4 (09:13→20:50)
[2017-10-19] MEDS: ATENOLOL 50 MG TAB PO SCH ×2 (09:14→20:52)
[2017-10-19 09:16] LABS: ALBUMIN 2.7 g/dl (3.3-4.9); ALBUMIN/GLOBULIN RATIO 1.08; BILIRUBIN,INDIRECT 0.4 mg/dl (0-1.1); BILIRUBIN,TOTAL 0.4 mg/dl (0.2-1.3); CALCIUM 8.6 mg/dl (8.4-10.2); CREATININE 0.62 mg/dl (0.44-1.00); MAGNESIUM 1.7 mg/dl (1.7-2.5); POTASSIUM 4.5 mmol/L (3.5-5.1); TOTAL PROTEIN 5.2 g/dl (6.1-8.1)
--- NOTE | 2017-10-19 13:57 | PN ---
Date/Time of Note Date/Time of Note DATE: 10/19/17 TIME: 13:54 Assessment/Plan VTE Prophylaxis VTE Prophylaxis Intervention: ambulation, SCD's, other Lines/Catheters IV Catheter Type (from Nrsg): Saline Lock Urinary Cath still in place: No Assessment/Plan Assessment/Plan A: nausea improved s/p lt THR HTN hyperlipidemia hypothyroid P: anticipate snf tomorrow, bed supposed to be available then cont current rx Subjective 24 Hr Interval Summary Free Text/Dictation Pt with some nausea, improving, no vomiting. No abd pain, cp, sob, dizziness. Pain controlled. Exam/Review of Systems Vital Signs Vitals Vital Signs Date Time Temp Pulse Resp B/P Pulse Ox O2 Delivery O2 Flow Rate FiO2 10/19/17 07:47 97.3 76 18 145/65 97 10/16/17 09:28 Nasal Cannula 2.0 Intake and Output 10/18/17 10/18/17 10/19/17 15:00 23:00 07:00 Intake Total 1200 ml 960 ml Output Total 900 ml 1000 ml Balance 300 ml -40 ml Exam gen- nad, nontoxic lungs- CTA heart- RRR abd- +BS, soft, nontender ext- tr edema Results Result Diagram: 10/19/17 0842 10/19/17 0842 Results 24 hrs Laboratory Tests Test 10/19/17 08:42 White Blood Count 8.0 Red Blood Count 3.09 L Hemoglobin 9.1 L Hematocrit 27.6 L Mean Corpuscular Volume 89.3 Mean Corpuscular Hemoglobin 29.4 Mean Corpuscular Hemoglobin Concent 33.0 Red Cell Distribution Width 14.0 Platelet Count 332 Mean Platelet Volume 9.5 Neutrophils % 61.9 Lymphocytes % 21.2 Monocytes % 11.2 H Eosinophils % 4.5 Basophils % 0.7 Nucleated Red Blood Cells % 0.0 Neutrophils # 5.0 Lymphocytes # 1.7 Monocytes # 0.9 Eosinophils # 0.4 Basophils # 0.1 Nucleated Red Blood Cells # 0.0 Sodium Level 134 L Potassium Level 4.5 Chloride Level 98 Carbon Dioxide Level 31 Anion Gap 10 Blood Urea Nitrogen 14 Creatinine 0.62 Glucose Level 106 Calcium Level 8.6 Magnesium Level 1.7 Total Bilirubin 0.4 Direct Bilirubin 0.00 Indirect Bilirubin 0.4 Aspartate Amino Transf (AST/SGOT) 17 Alanine Aminotransferase (ALT/SGPT) 32 Alkaline Phosphatase 89 Total Protein 5.2 L Albumin 2.7 L Globulin 2.50 Albumin/Globulin Ratio 1.08 Amylase Level 38 Lipase 100 Medications Medications Current Medications Sodium Chloride (NS) 1,000 ml @ 80 mls/hr [id number] IV Last administered on 12:16; Admin Dose 80 MLS/HR; Start 10/15/17 at 11:35 Oxycodone HCl (Roxicodone) 20 mg Q3H PRN PO PAIN LEVEL 8-10; Start 10/15/17 at 12:00 Oxycodone HCl (Roxicodone) 10 mg Q3H PRN PO PAIN LEVEL 4-7 Last administered on 10/19/17 09:12; Admin Dose 10 MG; Start 10/15/17 at 12:00 Oxycodone HCl (Roxicodone) 5 mg Q3H PRN PO PAIN LEVEL 1-3; Start 10/15/17 at 12:00 Zolpidem Tartrate (Ambien) 5 mg HS PRN PO INSOMNIA; Start 10/15/17 at 12:00 Aspirin (Ecotrin) 325 mg DAILY PO Last administered on 10/19/17 09:13; Admin Dose 325 MG; Start 10/16/17 at 09:00 Celecoxib (Celebrex) 200 mg BID PO Last administered on 10/19/17 09:13; Admin Dose 200 MG; Start 10/16/17 at 09:00 Pantoprazole (Protonix Tab) 40 mg DAILY@06 PO Last administered on 10/19/17 07:13; Admin Dose 40 MG; Start 10/16/17 at 06:00 Docusate Sodium/ Ferrous Fumarate (Jassi-Sequels) 1 tab BID PO Last administered on 10/19/17 09:13; Admin Dose 1 TAB; Start 10/16/17 at 09:00 Simethicone (Mylicon) 80 mg TID PRN PO DISTENSION/GAS/BLOATING; Start at 12:00 Senna/Docusate Sodium (Senokot-S) 2 tab BID PRN PO CONSTIPATION Last administered on 10/17/17 05:40; Admin Dose 2 TAB; Start 10/15/17 at 12:00 Magnesium Hydroxide (Milk Of Mag) 30 ml HS PRN PO CONSTIPATION; Start at 12:00 Bisacodyl (Dulcolax Supp) 10 mg DAILY PRN [place] CONSTIPATION; Start 10/15/17 at 12:00 Sodium Biphosphate/ Sodium Phosphate (Fleet Enema) 133 ml DAILY PRN [place] CONSTIPATION; Start 10/15/17 at 12:00 Diphenhydramine HCl (Benadryl) 25 mg Q4H PRN IM ITCHING OR RASH; Start at 12:00 Naloxone HCl (Narcan) 0.2 mg Q2M PRN IV DECREASED REPIRATORY RATE; Start at 12:00 Levothyroxine Sodium (Synthroid) 100 mcg DAILY@06 PO Last administered on 10/19 07:13; Admin Dose 100 MCG; Start 10/17/17 at 06:00 Atorvastatin Calcium (Lipitor) 20 mg HS PO Last administered on 10/18/17 20: 42; Admin Dose 20 MG; Start 10/17/17 at 21:00 Atenolol (Tenormin) 50 mg BID PO Last administered on 10/19/17 09:14; Admin Dose 50 MG; Start 10/18/17 at 21:00 Losartan Potassium (Cozaar) 50 mg DAILY PO Last administered on 10/19/17 09: 13; Admin Dose 50 MG; Start 10/18/17 at 15:00 Sucralfate (Carafate) 1 gm QID PO Last administered on 10/19/17 09:13; Admin Dose 1 GM; Start 10/18/17 at 17:00 DAVID MCCRARY MD Oct 19, 2017 13:57
[2017-10-19 19:42] VITALS: BP 129/62; RESP 16
[2017-10-19] MEDS: ATORVASTATIN 20 MG TAB PO SCH (20:50)
[2017-10-20 02:13] VITALS: BP 134/67; RESP 16
[2017-10-20 05:33] LABS: BASOPHIL # 0.1 10^3/ul (0.0-0.1); BASOPHILS % 0.6 % (0.0-2.0); EOSINOPHILS # 0.5 10^3/ul (0.0-0.5); EOSINOPHILS % 4.9 % (0.0-7.0); HEMATOCRIT 26.7 % (37.0-47.0); HEMOGLOBIN 8.7 g/dl (12.0-16.0); LYMPHOCYTES # 2.1 10^3/ul (0.8-2.9); LYMPHOCYTES % 22.9 % (15.0-51.0); MEAN CORPUSCULAR HEMOGLOBIN 28.9 pg (29.0-33.0); MEAN CORPUSCULAR HGB CONC 32.6 g/dl (32.0-37.0); MEAN CORPUSCULAR VOLUME 88.7 fl (82.0-101.0); MEAN PLATELET VOLUME 9.6 fl (7.4-10.4); MONOCYTES % 10.8 % (0.0-11.0); NEUTROPHIL # 5.6 10^3/ul (1.6-7.5); NEUTROPHILS % 60.4 % (39.0-77.0); PLATELET COUNT 330 10^3/UL (140-415); RED BLOOD COUNT 3.01 10^6/ul (4.20-5.40); RED CELL DISTRIBUTION WIDTH 13.9 % (11.5-14.5); WHITE BLOOD COUNT 9.3 10^3/ul (4.8-10.8)
[2017-10-20] MEDS: PANTOPRAZOLE (EC) 40 MG TAB PO SCH (05:58)
[2017-10-20] MEDS: LEVOTHYROXINE 100 MCG TAB PO SCH (05:58)
[2017-10-20 06:01] LABS: CALCIUM 8.6 mg/dl (8.4-10.2); CREATININE 0.72 mg/dl (0.44-1.00); POTASSIUM 3.9 mmol/L (3.5-5.1)
[2017-10-20 07:49] VITALS: BP 129/63; RESP 19
--- NOTE | 2017-10-20 08:03 | PN ---
Date/Time of Note Date/Time of Note DATE: 10/20/17 TIME: 08:00 Assessment/Plan VTE Prophylaxis VTE Prophylaxis Intervention: ambulation, SCD's, other (Aspirin 325 mg) Lines/Catheters IV Catheter Type (from Nrsg): Saline Lock Burciaga in Place (from Nrsg): No Assessment/Plan Assessment/Plan -Pain Meds as needed -ASA for DVT Prophylaxis x 4 weeks outpatient discussed. -Continue monitoring as outpatient on discharge -Follow-up at scheduled postop outpatient appointment or sooner if there is any issue. -Hip precautions discussed -Patient Stable -Discharge to SNF Subjective 24 Hr Interval Summary 82-year-old female postop day 5 status post left total hip arthroplasty via anterior route. Patient denies any pain. Denies any acute overnight events. Upon walking into the room, patient is up and weightbearing around the room without issue. Using front wheeled walker for assisted ambulation. Denies any chest pain/tightness, shortness of breath or calf pain. Patient was scheduled to be discharged a couple of days ago but due to holiday weekend and fully occupied bed count at [facility] she was unable to be transferred. Currently awaiting open bed and is expected to be transferred today. Pain Control: well controlled Exam/Review of Systems Vital Signs Vitals Vital Signs Date Time Temp Pulse Resp B/P Pulse Ox O2 Delivery O2 Flow Rate FiO2 10/20/17 02:13 98.8 71 16 134/67 96 10/16/17 09:28 Nasal Cannula 2.0 Intake and Output 10/19/17 10/19/17 10/20/17 15:00 23:00 07:00 Intake Total 1000 ml 480 ml Balance 1000 ml 480 ml Exam Free Text/Dictation -No complications with dressing intact. -Thigh soft -5/5 Quadriceps, Tibialis Anterior, EHL Gastrocnemius/Soleus and Peroneals -Normal Sensation -Palpable DP/PT, Capillary Refill <2 secs -No Distal Edema -Negative Negin Sign/No calf pain -Toes Freely Movable Constitutional: alert, oriented, well developed Results Result Diagram: 10/20/17 0512 10/20/17511 ANITRA ORTIZ PA-C Oct 20, 2017 08:02
[2017-10-20] MEDS: FERROUS FUMARATE (SR) TAB PO SCH ×2 (08:41→20:42)
[2017-10-20] MEDS: CELECOXIB 200 MG CAP PO SCH ×2 (08:41→20:43)
[2017-10-20] MEDS: ASPIRIN (EC) 325 MG TAB PO SCH (08:42)
[2017-10-20] MEDS: LOSARTAN 50 MG TAB PO SCH (08:42)
[2017-10-20] MEDS: SUCRALFATE 1 GM TAB PO SCH ×4 (08:42→20:43)
[2017-10-20] MEDS: ATENOLOL 50 MG TAB PO SCH ×2 (08:43→20:43)
[2017-10-20] MEDS: oxyCODONE 5 MG TAB PO PRN (13:46)
--- NOTE | 2017-10-20 14:32 | PN ---
Date/Time of Note Date/Time of Note DATE: 10/20/17 TIME: 14:29 Assessment/Plan VTE Prophylaxis VTE Prophylaxis Intervention: ambulation, SCD's, other Lines/Catheters IV Catheter Type (from Nrsg): Saline Lock Urinary Cath still in place: No Assessment/Plan Assessment/Plan A: s/p lt THR HTN hypothyroid nausea resolved A: transfer to snf for rehab cont current rx Subjective 24 Hr Interval Summary Free Text/Dictation Pt feeling better. Nausea resolved no abd pain, cp, sob. Pain controlled. Exam/Review of Systems Vital Signs Vitals Vital Signs Date Time Temp Pulse Resp B/P Pulse Ox O2 Delivery O2 Flow Rate FiO2 10/20/17 07:49 98.3 78 19 129/63 95 10/16/17 09:28 Nasal Cannula 2.0 Intake and Output 10/19/17 10/19/17 10/20/17 15:00 23:00 07:00 Intake Total 1000 ml 480 ml Balance 1000 ml 480 ml Exam gen- nad, nontoxic lungs- CTA heart- RRR abd- +BS, soft, nontender ext- tr edema Results Result Diagram: 10/20/1751110/20/1712 Results 24 hrs Laboratory Tests Test 10/20/17 05:12 White Blood Count 9.3 Red Blood Count 3.01 L Hemoglobin 8.7 L Hematocrit 26.7 L Mean Corpuscular Volume 88.7 Mean Corpuscular Hemoglobin 28.9 L Mean Corpuscular Hemoglobin Concent 32.6 Red Cell Distribution Width 13.9 Platelet Count 330 Mean Platelet Volume 9.6 Neutrophils % 60.4 Lymphocytes % 22.9 Monocytes % 10.8 Eosinophils % 4.9 Basophils % 0.6 Nucleated Red Blood Cells % 0.0 Neutrophils # 5.6 Lymphocytes # 2.1 Monocytes # 1.0 H Eosinophils # 0.5 Basophils # 0.1 Nucleated Red Blood Cells # 0.0 Sodium Level 136 Potassium Level 3.9 Chloride Level 99 Carbon Dioxide Level 30 Anion Gap 11 Blood Urea Nitrogen 19 Creatinine 0.72 Glucose Level 102 Calcium Level 8.6 Medications Medications Current Medications Oxycodone HCl (Roxicodone) 20 mg Q3H PRN PO PAIN LEVEL 8-10; Start 10/15/17 at 12:00 Oxycodone HCl (Roxicodone) 10 mg Q3H PRN PO PAIN LEVEL 4-7 Last administered on 10/20/17 13:46; Admin Dose 10 MG; Start 10/15/17 at 12:00 Oxycodone HCl (Roxicodone) 5 mg Q3H PRN PO PAIN LEVEL 1-3; Start 10/15/17 at 12:00 Zolpidem Tartrate (Ambien) 5 mg HS PRN PO INSOMNIA; Start 10/15/17 at 12:00 Aspirin (Ecotrin) 325 mg DAILY PO Last administered on 10/20/17 08:42; Admin Dose 325 MG; Start 10/16/17 at 09:00 Celecoxib (Celebrex) 200 mg BID PO Last administered on 10/20/17 08:41; Admin Dose 200 MG; Start 10/16/17 at 09:00 Pantoprazole (Protonix Tab) 40 mg DAILY@06 PO Last administered on 10/20/17 05:58; Admin Dose 40 MG; Start 10/16/17 at 06:00 Docusate Sodium/ Ferrous Fumarate (Jassi-Sequels) 1 tab BID PO Last administered on 10/20/17 08:41; Admin Dose 1 TAB; Start 10/16/17 at 09:00 Simethicone (Mylicon) 80 mg TID PRN PO DISTENSION/GAS/BLOATING; Start at 12:00 Senna/Docusate Sodium (Senokot-S) 2 tab BID PRN PO CONSTIPATION Last administered on 10/17/17 05:40; Admin Dose 2 TAB; Start 10/15/17 at 12:00 Magnesium Hydroxide (Milk Of Mag) 30 ml HS PRN PO CONSTIPATION; Start at 12:00 Bisacodyl (Dulcolax Supp) 10 mg DAILY PRN MA CONSTIPATION; Start 10/15/17 at 12:00 Sodium Biphosphate/ Sodium Phosphate (Fleet Enema) 133 ml DAILY PRN MA CONSTIPATION; Start 10/15/17 at 12:00 Diphenhydramine HCl (Benadryl) 25 mg Q4H PRN IM ITCHING OR RASH; Start at 12:00 Naloxone HCl (Narcan) 0.2 mg Q2M PRN IV DECREASED REPIRATORY RATE; Start at 12:00 Levothyroxine Sodium (Synthroid) 100 mcg DAILY@06 PO Last administered on 10/20 05:58; Admin Dose 100 MCG; Start 10/17/17 at 06:00 Atorvastatin Calcium (Lipitor) 20 mg HS PO Last administered on 10/19/17 20: 50; Admin Dose 20 MG; Start 10/17/17 at 21:00 Atenolol (Tenormin) 50 mg BID PO Last administered on 10/20/17 08:43; Admin Dose 50 MG; Start 10/18/17 at 21:00 Losartan Potassium (Cozaar) 50 mg DAILY PO Last administered on 10/20/17 08: 42; Admin Dose 50 MG; Start 10/18/17 at 15:00 Sucralfate (Carafate) 1 gm QID PO Last administered on 10/20/17 13:41; Admin Dose 1 GM; Start 10/18/17 at 17:00 DAVID MCCRARY MD Oct 20, 2017 14:32
[2017-10-20 16:12] VITALS: BP 132/63; RESP 20
[2017-10-20 20:33] VITALS: BP 141/63; RESP 18
[2017-10-20] MEDS: ATORVASTATIN 20 MG TAB PO SCH (20:43)
[2017-10-21 02:33] VITALS: BP 143/62; RESP 18
[2017-10-21 05:24] LABS: BASOPHIL # 0.1 10^3/ul (0.0-0.1); BASOPHILS % 0.8 % (0.0-2.0); EOSINOPHILS # 0.6 10^3/ul (0.0-0.5); EOSINOPHILS % 6.4 % (0.0-7.0); HEMATOCRIT 27.5 % (37.0-47.0); LYMPHOCYTES # 2.1 10^3/ul (0.8-2.9); LYMPHOCYTES % 24.5 % (15.0-51.0); MEAN CORPUSCULAR HEMOGLOBIN 29.4 pg (29.0-33.0); MEAN CORPUSCULAR HGB CONC 32.7 g/dl (32.0-37.0); MEAN CORPUSCULAR VOLUME 89.9 fl (82.0-101.0); MEAN PLATELET VOLUME 9.7 fl (7.4-10.4); MONOCYTE # 1.2 10^3/ul (0.3-0.9); MONOCYTES % 13.9 % (0.0-11.0); NEUTROPHIL # 4.6 10^3/ul (1.6-7.5); NEUTROPHILS % 53.7 % (39.0-77.0); PLATELET COUNT 363 10^3/UL (140-415); RED BLOOD COUNT 3.06 10^6/ul (4.20-5.40); RED CELL DISTRIBUTION WIDTH 13.9 % (11.5-14.5); WHITE BLOOD COUNT 8.6 10^3/ul (4.8-10.8)
[2017-10-21 05:55] LABS: CALCIUM 8.9 mg/dl (8.4-10.2); CREATININE 0.77 mg/dl (0.44-1.00); POTASSIUM 4.4 mmol/L (3.5-5.1)
[2017-10-21] MEDS: PANTOPRAZOLE (EC) 40 MG TAB PO SCH (06:11)
[2017-10-21] MEDS: LEVOTHYROXINE 100 MCG TAB PO SCH (06:11)
--- NOTE | 2017-10-21 07:24 | PN ---
Date/Time of Note Date/Time of Note DATE: 10/21/17 TIME: 07:22 Assessment/Plan VTE Prophylaxis VTE Prophylaxis Intervention: ambulation, SCD's, other (Aspirin 325 mg) Lines/Catheters IV Catheter Type (from Nrsg): Saline Lock [place]ciaga in Place (from Nrsg): No Assessment/Plan Assessment/Plan -Pain Meds as needed -ASA for DVT Prophylaxis x 4 weeks outpatient discussed. -Continue monitoring as outpatient on discharge -Follow-up at scheduled postop outpatient appointment or sooner if there is any issue. -Hip precautions discussed -Patient Stable -Discharge to SNF. There was no bed availability at [facility] yesterday but there was approval to be transferred to a different residential facility in which patient refused. At this stage patient is stable from a health perspective and there is no reason to continue stay in a hospital setting. She was made aware that if we cannot obtain availability in residential facility to her liking, she may be discharged home with home health for ongoing monitoring and she states understanding. Subjective 24 Hr Interval Summary 82-year-old female postop day 6 status post left total hip arthroplasty via anterior route. No complaints overnight. Patient denies any pain complaints. Up and out of bed using front wheeled walker. Continues with physical therapy. Continues to await availability with residential facility. Pain Control: well controlled Exam/Review of Systems Vital Signs Vitals Vital Signs Date Time Temp Pulse Resp B/P Pulse Ox O2 Delivery O2 Flow Rate FiO2 10/21/17 02:33 97.9 67 18 143/62 94 Intake and Output 10/20/17 10/20/17 10/21/17 15:00 23:00 07:00 Intake Total 1320 ml 500 ml Output Total 700 ml 800 ml Balance 620 ml -300 ml Exam Free Text/Dictation -No complications with dressing intact. -Thigh soft -5/5 Quadriceps, Tibialis Anterior, EHL Gastrocnemius/Soleus and Peroneals -Normal Sensation -Palpable DP/PT, Capillary Refill <2 secs -No Distal Edema -Negative Negin Sign/No calf pain -Toes Freely Movable Results Result Diagram: 10/21/17 0428 10/21/17 0428 ANITRA ORTIZ PA-C Oct 21, 2017 07:24
[2017-10-21 08:00] VITALS: BP 138/63; RESP 18
[2017-10-21] MEDS: FERROUS FUMARATE (SR) TAB PO SCH (09:59)
[2017-10-21] MEDS: SUCRALFATE 1 GM TAB PO SCH ×2 (09:59→13:44)
[2017-10-21] MEDS: ASPIRIN (EC) 325 MG TAB PO SCH (09:59)
[2017-10-21] MEDS: LOSARTAN 50 MG TAB PO SCH (10:00)
[2017-10-21] MEDS: CELECOXIB 200 MG CAP PO SCH (10:00)
[2017-10-21] MEDS: ATENOLOL 50 MG TAB PO SCH (10:01)
[2017-10-21 14:00] VITALS: BP 135/64; RESP 18
--- NOTE | 2017-10-22 11:08 | DS ---
Date/Time of Note Date/Time of Note DATE: 10/22/17 TIME: 11:07 Discharge Summary Admission/Discharge Info Admit Date/Time Oct 15, 2017 at 06:59 Discharge Date/Time Oct 21, 2017 at 16:00 Discharge Diagnosis Status post left total hip arthroplasty via anterior route Patient Condition: Good Hospital Course On the day of admission, the patient underwent left total hip arthroplasty via anterior route Intraoperative complications: None Postoperative complications: None The patient was given prophylactic antibiotics and anticoagulants. On the day of surgery and first postoperative day patient was started on gait training and was taught usual restrictions following anterior hip replacement On postoperative day 1 dressing was clean dry and intact. No complications were observed. Patient stated up to a week due to limited availability in [facility] facility. On the day of discharge, the wound was clean and healing well; there was no sign of infection. Wound care instructions were discussed with the patient. Discharge Temperature: 98.6 Discharge White Blood Cell Count: 8.6 Discharge Hemoglobin: 9 The patient was discharged [facility] facility. Arrangements were made for visiting nurses and home health/physical therapy. The patient will be seen in office at scheduled postoperative evaluation date given on their preoperative exam. Should patient complain of any problems prior to scheduled postoperative evaluation date, they may call into outpatient clinic to determine if they need to be scheduled at sooner appointment to be seen immediately if needed. Discharge medications: As per medication reconciliation form Diet: Same as preadmission diet. This is Anitra Hansen PA-C dictating discharge summary for Dr. Thompson. Home Meds Reported Medications Calcium Carbonate/Vitamin D3 (Oysco 500+D Tablet) 1 Each Tablet, 1 EACH PO BID, TAB 10/15/17 B&C/FA/Zinc/Copper Oxide/Vit E (Stress B-Complex) 1 Each Tablet, 1 TAB PO DAILY , TAB 10/15/17 Vit A/Vit C/Vit E/Zinc/Copper (Preservision Areds Softgel) 1 Each Capsule, 1 EACH PO BID, CAP 10/15/17 Albuterol Sulfate* (Proair HFA*) 8.5 Gm Hfa.aer.ad, 2 PUFF INH BID Y for WHEEZING AND SOB, #1 INHALER 10/15/17 Atorvastatin Calcium* (Atorvastatin Calcium*) 20 Mg Tablet, 20 MG PO QHS, #30 TAB 10/15/17 Oxybutynin Chloride* (Ditropan*) 5 Mg Tab, 5 MG PO BID, TAB 10/15/17 Montelukast Sodium* (Montelukast Sodium*) 10 Mg Tablet, 10 MG PO BID, #30 TAB 04/26/16 Pantoprazole* (Pantoprazole*) 40 Mg Tablet.dr, 40 MG PO DAILY, TAB 04/26/16 Bacillus Coagulans/Inulin (Probiotic Formula Capsule) 1 Each Capsule, 1 EACH PO DAILY, CAP 04/26/16 Sucralfate* (Carafate*) 1 Gm Tab, 1 GM PO BID, TAB 04/26/16 Ascorbic Acid* (Vitamin C*) 500 Mg Capsule.sa, 1000 MG PO DAILY, CAP 04/26/16 Levothyroxine Sodium* (Synthroid*) 100 Mcg Tablet, 100 MCG PO BEFORE BREAKFAST, #30 TAB 04/26/16 Atenolol* (Atenolol*) 50 Mg Tablet, 50 MG PO BID, #60 TAB 04/26/16 Celecoxib* (Celebrex*) 200 Mg Capsule, 200 MG PO DAILY, CAP 04/26/16 Hydrochlorothiazide* (Hydrochlorothiazide*) 25 Mg Tab, 25 MG PO DAILY, #30 TAB 04/26/16 Levocetirizine Dihydrochloride (Xyzal) 5 Mg Tablet, 5 MG PO QPM, TAB 04/26/16 Losartan Potassium* (Losartan Potassium*) 50 Mg Tablet, 50 MG PO DAILY, TAB 04/26/16 Discontinued Reported Medications [Nasonex] No Conflict Check 04/26/16 Oxybutynin Chloride* (Oxybutynin Chloride*) 5 Mg/5 Ml Syrup, 5 MG PO TID, ML 04/26/16 Albuterol Sulfate* (Proair HFA*) 8.5 Gm Hfa.aer.ad, 2 PUFF INH Q4, #1 INHALER 04/26/16 Aspirin* (Aspirin* EC) 81 Mg Tablet.dr, 81 MG PO DAILY, TAB 04/26/16 Atorvastatin* (Atorvastatin*) 40 Mg Tablet, 20 MG PO QHS, #30 TAB 04/26/16 Follow-up Plan Follow-up at postoperative appointment given to you at your preoperative visit. Primary Care Provider Piotr Mercado MD Pending Labs Laboratory Tests Test 10/22/17 10:47 Lab Scanned Report REFERENCE [id number] ANITRA ORTIZ PA-C Oct 22, 2017 11:08
== END 2017-10-21 16:00 | DRG 470 ==
LOC: REC 10-15 06:59 → MS1 10-15 15:45
PROVIDERS: ADMIT Orthopaedic Surgery; ATTEND Orthopaedic Surgery
PROC: 0SRB04A Replacement of Left Hip Joint with Ceramic on Polyethylene Synthetic Substitute, Uncemented, Open Approach (ICD-10-PCS; principal; 2017-10-15 09:00)
DX: M16.12 Unilateral primary osteoarthritis, left hip (principal); E83.42 Hypomagnesemia; I10 Essential (primary) hypertension; E78.5 Hyperlipidemia, unspecified; E03.9 Hypothyroidism, unspecified; R73.03 Prediabetes; E87.6 Hypokalemia
CPT/HCPCS: 73530; 80048; 80053; 82150; 83690; 83735; 85025; 88304; 88311; 97110; 97116; 97161; 97166; 97530; C1713; C1776; J0131; J0171; J0735; J1100; J1885; J2274; J2405; J2710; J2765; J2795; J3370; J3475; J7030; J7120

== ENCOUNTER → 2017-09-12 | Outpatient (CLI) | payer MEDICARE, OTHER ==
--- NOTE | 2017-09-12 18:07 | RADRPT ---
PROCEDURE: XR Left hip and pelvis. CLINICAL INDICATION: Left hip pain and pelvic pain. TECHNIQUE: 3 views. Frontal pelvis. Frontal and lateral left hip. COMPARISON: 06/11/2016. 02/18/2017. FINDINGS: There is a right hip total arthroplasty which appears satisfactory. There is no fracture, dislocatio n, or loosening. There are severe degenerative changes of the left hip with joint space narrowing, osteophytes, subar ticular sclerosis, subchondral cysts, and deformity. The appearance is unchanged from 02/18/2017. Multiple surgical clips are present in the pelvis as seen previously. There is no lytic or blastic lesion. The upper pelvis is not completely included on the image. IMPRESSION: 1. Satisfactory postoperative appearance of the right hip. 2. Severe degenerative changes of the left hip, unchanged from 02/18/2017. RPTAT: QQ .John Conner MD, MD Date Time Electronically viewed and signed by .John Conner MD, on 09/12/2017 18:07 .R/
--- NOTE | 2017-09-13 05:00 | HKNOTE ---
DATE OF SERVICE: 09/12/2017 CHIEF COMPLAINT: Left hip pain. HISTORY OF PRESENT ILLNESS: Luz is an 82-year-old female who is here for evaluation of left hip pain that is chronic. The pain has been ongoing for at least 1 year. Her pain is located in the g roin and radiates to the left thigh. She has difficulty with walking and weightbearing. She is usi ng a walker for support. The patient also reports limited range of motion and shortening of her lef t lower extremity compared to the right. The patient had a right total hip replacement last year by Dr. Bull and the right hip is progressing well. The patient is here to discuss left hip repl acement as previously advised by Dr. Bull. PAST MEDICAL HISTORY: Significant for asthma, chronic UTI, thyroid disease and hip arthritis. MEDICATIONS: Include: 1. Albuterol. 2. Pantoprazole. 3. Oxybutynin. 4. Montelukast. 5. Probiotics. 6. Synthroid. 7. Aspirin. 8. Atorvastatin. 9. Celebrex. 10. Hydrochlorothiazide. 11. Losartan. ALLERGIES: PENICILLIN. REVIEW OF SYSTEMS: Negative for chest pain, shortness of breath, nausea, vomiting, diarrhea. Posit nataliia for left hip pain and leg length inequality. PHYSICAL EXAMINATION: GENERAL: Shows a pleasant female. She is awake, alert and oriented. VITAL SIGNS: Stable with a blood pressure of 160/70, temperature 98 degrees, pulse 78 per minute. MUSCULOSKELETAL: She walks with a limp on her left side. The patient is using a walker for support . Left hip is tender anteriorly and laterally. Range of motion of the left hip was limited with fl exion of 90 degrees, external rotation of 30 degrees and internal rotation of 0 degrees. On the rig ht side, the patient has a healed incision of hip replacement with terminally restricted range of mo tion. The left lower extremity 5 to 7 mm shorter than the right. X-rays of the hip and pelvis were reviewed and show advanced osteoarthritis of the left hip with com plete loss of joint space, osteophytes and subchondral cysts. ASSESSMENT AND PLAN: An 82-year-old female with advanced osteoarthritis of her left hip. Treatment options were discussed including medications, injections, physical therapy and left hip replacement . The patient would like to proceed with a left total hip replacement in the near future. Risks an d benefits were discussed. Implant materials and surgical techniques were discussed with the patien t. She would like to go to a long-term facility postoperatively and this will be arranged. Dictated By: RAJEEV GARCIA/CIRILO Conf#: [id number] DID#: [id number]
== END | disposition home or self-care (01) ==
LOC: HKI 13:53
PROVIDERS: ATTEND Orthopaedic Surgery
DX: M16.12 Unilateral primary osteoarthritis, left hip (principal); J45.909 Unspecified asthma, uncomplicated; E03.9 Hypothyroidism, unspecified; Z87.440 Personal history of urinary (tract) infections; Z79.82 Long term (current) use of aspirin
CPT/HCPCS: 73502

== ENCOUNTER → 2017-10-03 | Outpatient (CLI) | payer MEDICARE, OTHER ==
[~2017-10-03] MED LIST changes: +ATOR20TA38 PO; +B&C/1TAB2 PO; +CALC1TAB79 PO; +OXYB5TAB7 PO; +VIT1CAPS10 PO
--- NOTE | 2017-11-01 06:50 | HKNOTE ---
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 Surgery is scheduled for 10/15/2017. Risks and benefits of the surgical procedure were discussed with the patient including, but not limi hector to bleeding, infection, scarring stiffness, injury to nerves and vessels, chronic pain, dislocat ion, fracture, implant failure, and need for further surgery. The patient understands and wishes to proceed. Dictated By: RAJEEV GARCIA/CIRILO Conf#: [id number] DID#: [id number]
== END | disposition home or self-care (01) ==
LOC: HKI 11:39
PROVIDERS: ATTEND Orthopaedic Surgery
DX: M16.12 Unilateral primary osteoarthritis, left hip (principal)
CPT/HCPCS: G0463

== ENCOUNTER → 2017-10-31 | Outpatient (CLI) | END | disposition home or self-care (01) ==

== ENCOUNTER → 2017-12-12 | Outpatient (CLI) | END | disposition home or self-care (01) ==

== ENCOUNTER → 2018-02-13 | Outpatient (CLI) | END | disposition home or self-care (01) ==

== ENCOUNTER → 2018-04-13 | Outpatient (CLI) | END | disposition home or self-care (01) ==

== ENCOUNTER → 2018-07-06 | Outpatient (CLI) | END | disposition home or self-care (01) ==

== ENCOUNTER → 2019-01-25 | Outpatient (CLI) | payer OTHER ==
[~2019-01-25] MED LIST changes: -ALBU8.5H3 INH; +ALBU8.5H8 INH; -ASPI-664 PO; -ATOR40TA68 PO; +LEVO-86 PO; +LOSA50TA14 PO; -LOSA50TA6 PO; -NASONEX; -OXYB5SYR2 PO; -SYN1 PO
--- NOTE | 2019-01-25 11:16 | PN ---
Date/Time of Note Date/Time of Note DATE: 01/25/19 TIME: 11:14 Assessment/Plan VTE Prophylaxis Pharmacological prophylaxis: other Assessment/Plan Assessment/Plan 83-year-old female with left total hip replacement that was done about a year ago. The patient has done well and is advised to continue unrestricted activity. She will follow-up annually. Antibiotic prophylaxis for dental treatment was discussed. Subjective 24 Hr Interval Summary Free Text/Dictation Luz is here for follow-up after left hip replacement that was done about a year ago. The patient reports steady progress and is able to do most of her activities without discomfort. She is pleased with her outcome. She also has a right hip replacement that is doing well Exam/Review of Systems Exam Vitals Patient is afebrile Exam Examination shows a pleasant female. In the left hip incision is well-healed. Range of motion is terminally restricted. There is no obvious leg length inequality. Mild numbness of the left thigh is noted. X-rays of the hips show total hip replacements in good position with no evidence of loosening. RAJEEV BENITEZ Jan 25, 2019 11:16
--- NOTE | 2019-01-27 07:24 | RADRPT ---
PROCEDURE: XR pelvis and left hip. CLINICAL INDICATION: PAIN TECHNIQUE: AP pelvis, AP and frog lateral views of the left hip were performed. COMPARISON: HIP 07/06/2018; HIP 04/13/2018; [facility] 06/11/2016; [facility] 04/26/2016; [facility] 04/26/2016 FINDINGS: Again noted are bilateral hip prostheses without evidence of dislocation or loosening. No acute fract ure or osseous lesion is identified. There are multiple surgical clips in the pelvis. The soft tissu es are otherwise unremarkable. IMPRESSION: Bilateral hip prostheses without evidence of acute fracture, dislocation or loosening. [facility] Physician Abdelrahman Date Time Electronically viewed and signed by Physician Abdelrahman on 01/27/2019 07:23 /
== END | disposition home or self-care (01) ==
LOC: HKI 09:48
PROVIDERS: ATTEND Orthopaedic Surgery
DX: Z09 Encounter for follow-up examination after completed treatment for conditions other than malignant neoplasm (principal); Z96.642 Presence of left artificial hip joint; R20.0 Anesthesia of skin
CPT/HCPCS: 73502; G0463